=== PATIENT | female | born 1985 | race African-American/Black ===

== ENCOUNTER 2020-05-18 14:39 | Emergency (ER) | payer OTHER ==
[~2020-05-18] VITALS: Ht 175.3 cm; Wt 97.5 kg
[~2020-05-18 14:39] MED LIST: ACYCLOVIR 400400 MG PO; FLEXERIL PO; IBUPROFEN 600600 M1 PO; KEFLEX500 MG PO; KENALOG60 GM TP; ORTHO TRI-CYCL1 EACH; PRENATAL; VICODIN 5-5001 EACH PO
[2020-05-18] MEDS ORDERED: IBUPROFEN 600600 M1 PO ×2 (16:31→16:41)
[2020-05-18] MEDS ORDERED: MEDROLDOSEPACK PO ×2 (16:31→16:41)
[2020-05-18] MEDS ORDERED: FLEXERIL PO ×2 (16:31→16:41)
[2020-05-18 17:00] VITALS: BP 118/80
== END 2020-05-18 17:03 | disposition home or self-care (01) ==
LOC: M.ERS 14:39
DX: S00.31XA Abrasion of nose, initial encounter (principal); S00.212A Abrasion of left eyelid and periocular area, initial encounter; S00.81XA Abrasion of other part of head, initial encounter; M54.2 Cervicalgia; M25.512 Pain in left shoulder; V89.2XXA Person injured in unspecified motor-vehicle accident, traffic, initial encounter; Y93.I9 Activity, other involving external motion; Y92.488 Other paved roadways as the place of occurrence of the external cause; Y99.8 Other external cause status